=== PATIENT | male | born 1995 | race Hispanic/Latino ===

== ENCOUNTER 2021-11-27 23:34 | Emergency (ER) | payer SELFPAY ==
[2021-11-28] MEDS ORDERED: Ondansetron ODT 8 MG TAB ONE (01:19)
[2021-11-28] MEDS ORDERED: Acetaminophen 500 MG TAB ONE ×2 (01:19→01:50)
== END 2021-11-28 01:56 | disposition home or self-care (01) ==
LOC: ERS 23:34
DX: U07.1 COVID-19 (principal)
CPT/HCPCS: 99283; Q0162

== ENCOUNTER 2022-07-18 02:48 | Emergency (ER) | payer SELFPAY ==
[2022-07-18] MEDS ORDERED: Ondansetron ODT 4 MG TAB ONE (02:53)
== END 2022-07-18 02:59 ==
LOC: ERS 02:48
DX: R11.10 Vomiting, unspecified (principal); F10.129 Alcohol abuse with intoxication, unspecified; Y90.9 Presence of alcohol in blood, level not specified
CPT/HCPCS: 99283; Q0162

== ENCOUNTER 2025-01-23 20:50 | Emergency (ER) | payer SELFPAY ==
[2025-01-23] MEDS ORDERED: Acetaminophen 500 MG TAB ONE (22:22)
[2025-01-23] MEDS ORDERED: Ketorolac Tromethamine 30 MG (1 mL) VIAL ONE (22:22)
[2025-01-23 23:00] LABS: #Basophils 0.05 10x3/uL (0.0-0.2); #Eosinophils 0.18 10x3/uL (0.0-0.7); #Monocytes 0.99 10x3/uL (0.11-0.59); #Neutrophils 6.59 10x3/uL (1.40-6.50); %Basophils 0.5 % (0.0-1.0); %Eosinophils 1.8 % (0.0-10.0); %Lymphocytes 19.2 % (21.0-51.0); %Monocytes 10.2 % (0.0-10.0); %Neutrophils 67.6 % (42.0-75.0); Hematocrit 49.7 % (42.0-52.0); Hemoglobin 16.2 g/dL (14.0-18.0); Mean Corpuscular Hemoglobin 28.5 pg (27.0-31.0); Mean Corpuscular Volume 87.3 fL (78.0-98.0); Platelet Count 368 10x3/uL (130-400); Red Blood Cell (RBC) Count 5.69 mill/uL (4.70-6.10); White Blood Cell (WBC) Count 9.75 10x3/uL (4.8-10.8)
[2025-01-23] MEDS ORDERED: valACYclovir 500 MG TAB PO SCH (23:15)
[2025-01-23 23:23] LABS: ALT (SGPT) 118 U/L (Less than 45); AST (SGOT) 84 U/L (11-34); Albumin 4.1 g/dL (3.1-4.5); Alkaline Phosphatase 83 U/L (40-110); Anion Gap 16 mmol/L (10-20); BUN (Urea Nitrogen) 14 mg/dL (8.9-20.6); Bilirubin, Total 0.4 mg/dL (0.3-1.2); Calc. Creatinine Clearance 0 mL/min (70-130); Calcium 9.8 mg/dL (7.8-10.44); Carbon Dioxide 26 mmol/L (22-29); Chloride 102 mmol/L (98-107); Globulin 3.7 g/dL (2.4-3.5); Glucose 129 mg/dL (70-105); Potassium 4.2 mmol/L (3.5-5.1); Sodium 140 mmol/L (136-145)
[2025-01-24] MEDS ORDERED: valACYclovir 500 MG TAB ONE (00:12)
== END 2025-01-24 00:20 | disposition home or self-care (01) ==
LOC: ERS 20:50
DX: B02.9 Zoster without complications (principal); Z55.6 Problems related to health literacy
CPT/HCPCS: 80053; 85025; 96374; J1885